=== PATIENT | male | born 1980 ===

== ENCOUNTER 2022-07-14 15:19 | Observation (INO) ==
[2022-07-14] MEDS ORDERED: SODIUM CHLORIDE 0.9% 1,000 ML IV STA (16:15)
[2022-07-14] MEDS ORDERED: CLINDAMYCIN INJ 600 MG/50 ML PREMIX IV STA (16:15)
[2022-07-14] MEDS ORDERED: KETOROLAC 30 MG/1 ML VIAL IV ONE (16:15)
[2022-07-14 16:35] LABS: Basophils % 0.2 % (0.0-0.8); Eosinophils # 0.2 10*3/uL (0.0-0.87); Eosinophils % 1.1 % (0.00-10.9); Hematocrit 46.6 VOL% (42.0-52.0); Hemoglobin 15.5 GM/DL (14.0-18.0); Immature Granulocytes % 0.6 %; Immature Granulocytes Absolute 0.11 #; Lymphocytes # 0.9 10*3/uL (1.4-4.0); Lymphocytes % 5.4 % (21.2-54.2); Mean Corpuscular HGB Conc 33.3 GM/DL (32-36); Mean Platelet Volume 9.7 FL (9.6-12.0); Monocytes # 1.3 10*3/uL (0.11-0.8); Monocytes % 7.5 % (1.7-12.7); Neutrophils % 85.2 % (38.7-73.9); Platelet Count 290 T/CUMM (130-400); Red Blood Count 5.12 MC/CUMM (3.8-5.5); Red Cell Distribution Width 13.5 % (9.3-17.3); White Blood Count 17.5 T/CUMM (4-12)
[2022-07-14 16:48] LABS: Albumin 3.6 G/DL (3.4-5.0); Bilirubin,Total 0.8 MG/DL (0.20-1.00); Calcium 8.5 MG/DL (8.5-10.1); Osmolality,Calculated 272.8 MOS/KG (273-304); Potassium 3.7 MMOL/L (3.5-5.1); Total Protein 7.8 G/DL (6.4-8.2)
[2022-07-14] MEDS ORDERED: ACETAMINOPHEN 325 MG TABLET PO PRN (17:29)
[2022-07-14] MEDS ORDERED: ONDANSETRON 4 MG/2 ML VIAL IV PRN (17:29)
[2022-07-14] MEDS ORDERED: ENOXAPARIN 40 MG/0.4 ML SYRINGE SUBCUT SCH (21:00)
[2022-07-14] MEDS: VANCOMYCIN INJ 1,500 MG in SODIUM CHLORIDE 0.9% 500 ML IV SCH (21:17)
[2022-07-15 05:13] LABS: Basophils % 0.3 % (0.0-0.8); Eosinophils # 0.2 10*3/uL (0.0-0.87); Eosinophils % 1.4 % (0.00-10.9); Hemoglobin 13.9 GM/DL (14.0-18.0); Immature Granulocytes % 0.6 %; Lymphocytes % 6.4 % (21.2-54.2); Mean Corpuscular HGB Conc 33.9 GM/DL (32-36); Mean Corpuscular Volume 90.7 FL (87-102); Mean Platelet Volume 9.9 FL (9.6-12.0); Monocytes # 1.2 10*3/uL (0.11-0.8); Monocytes % 7.8 % (1.7-12.7); Neutrophils % 83.5 % (38.7-73.9); Platelet Count 263 T/CUMM (130-400); Red Blood Count 4.52 MC/CUMM (3.8-5.5); Red Cell Distribution Width 13.7 % (9.3-17.3); White Blood Count 15.4 T/CUMM (4-12)
[2022-07-15 05:36] LABS: Albumin 3.1 G/DL (3.4-5.0); Bilirubin,Total 0.7 MG/DL (0.20-1.00); Calcium 8.5 MG/DL (8.5-10.1); Osmolality,Calculated 278.4 MOS/KG (273-304); Potassium 3.9 MMOL/L (3.5-5.1); Total Protein 6.8 G/DL (6.4-8.2)
[2022-07-15] MEDS: PANTOPRAZOLE 40 MG TABLET PO SCH (08:15)
[2022-07-15] MEDS: VANCOMYCIN INJ 1,500 MG in SODIUM CHLORIDE 0.9% 500 ML IV SCH ×2 (08:18→20:20)
[2022-07-15] MEDS: PIPERACILLIN/TAZOBACTAM 3,375 MG in SODIUM CHLORIDE 0.9% 100 ML IV SCH (16:21)
[2022-07-16] MEDS: PIPERACILLIN/TAZOBACTAM 3,375 MG in SODIUM CHLORIDE 0.9% 100 ML IV SCH ×2 (00:20→08:56)
[2022-07-16 05:59] LABS: Basophils % 0.3 % (0.0-0.8); Eosinophils # 0.3 10*3/uL (0.0-0.87); Eosinophils % 2.3 % (0.00-10.9); Hematocrit 42.8 VOL% (42.0-52.0); Hemoglobin 13.9 GM/DL (14.0-18.0); Immature Granulocytes % 0.7 %; Immature Granulocytes Absolute 0.08 #; Lymphocytes % 8.2 % (21.2-54.2); Mean Corpuscular HGB Conc 32.5 GM/DL (32-36); Monocytes # 1.1 10*3/uL (0.11-0.8); Monocytes % 9.3 % (1.7-12.7); Neutrophils % 79.2 % (38.7-73.9); Platelet Count 277 T/CUMM (130-400); Red Cell Distribution Width 13.6 % (9.3-17.3); White Blood Count 12.1 T/CUMM (4-12)
[2022-07-16 06:18] LABS: Calcium 8.8 MG/DL (8.5-10.1); Osmolality,Calculated 277.4 MOS/KG (273-304); Potassium 4.2 MMOL/L (3.5-5.1)
[2022-07-16 06:23] LABS: Risk Ratio 1.87; Thyroid Stimulating Hormone 1.24 uIU/ml (0.358-3.74); VLDL Cholesterol 9.2 MG/DL
[2022-07-16] MEDS ORDERED: ROCURONIUM 50 MG/5 ML VIAL IV ONE (07:58)
[2022-07-16] MEDS ORDERED: SUCCINYLCHOLINE 200 MG/10 ML VIAL ONE (07:58)
[2022-07-16] MEDS ORDERED: DESFLURANE 1 UNIT/15 MINUTE INH ONE (07:58)
[2022-07-16] MEDS ORDERED: propofoL 200 MG/20 ML VIAL IV ONE (07:58)
[2022-07-16] MEDS ORDERED: ONDANSETRON 4 MG/2 ML VIAL ONE (07:58)
[2022-07-16] MEDS ORDERED: LIDOCAINE 2% 5 ML VIAL ONE (07:58)
[2022-07-16] MEDS ORDERED: LACTATED RINGERS 1,000 ML IV SCH (08:00)
[2022-07-16] MEDS ORDERED: fentaNYL 100 MCG/2 ML VIAL ONE (08:02)
[2022-07-16] MEDS ORDERED: BUPIVACAINE MPF 0.25% 10 ML VIAL ONE (08:39)
[2022-07-16] MEDS ORDERED: GLYCOPYRROLATE 0.4 MG/2 ML VIAL ONE (08:50)
[2022-07-16] MEDS ORDERED: NEOSTIGMINE 10 MG/10 ML VIAL ONE (08:50)
[2022-07-16] MEDS: VANCOMYCIN INJ 1,500 MG in SODIUM CHLORIDE 0.9% 500 ML IV SCH (08:56)
[2022-07-16] MEDS ORDERED: HYDROmorphone 1 MG/1 ML SYRINGE ONE (09:10)
[2022-07-16] MEDS: HYDROmorphone 1 MG/1 ML SYRINGE IV PRN ×2 (09:15→09:22)
[2022-07-16] MEDS ORDERED: ONDANSETRON 4 MG/2 ML VIAL IV PRN (09:15)
[2022-07-16] MEDS: PANTOPRAZOLE 40 MG TABLET PO SCH (10:37)
[2022-07-16 12:21] VITALS: BP 134/87
== END 2022-07-16 12:45 | disposition home or self-care (01) ==
LOC: N.ED 15:19 → N.EDINP 15:19 → N.3E 19:05
PROVIDERS: ADMIT Internal Medicine; ATTEND Internal Medicine